=== PATIENT | male | born 1990 | race Two or more races ===

== ENCOUNTER 2017-02-02 00:06 | Emergency (ER) | payer SELFPAY ==
[~2017-02-02] VITALS: Ht 175.3 cm; Wt 84.7 kg
[2017-02-02] MEDS ORDERED: ONDANSETRON 2MG/ML, 2ML ONE ×2 (00:08→00:41)
[2017-02-02 00:13] VITALS: BP 122/74
[2017-02-02] MEDS ORDERED: SODIUM CHLORIDE 0.9% 1,000ML IVBOLUS ONE (00:30)
[2017-02-02] MEDS ORDERED: SODIUM CHLORIDE FLUSH 10ML SYR IVF ONE (00:30)
[2017-02-02] MEDS ORDERED: ONDANSETRON 2MG/ML, 2ML IVPush ONE (00:30)
== END 2017-02-02 05:31 | disposition home or self-care (01) ==
LOC: ED 05:07
DX: S09.93XA Unspecified injury of face, initial encounter (principal); S00.81XA Abrasion of other part of head, initial encounter; G31.2 Degeneration of nervous system due to alcohol; W22.8XXA Striking against or struck by other objects, initial encounter; Y93.89 Activity, other specified; Y92.89 Other specified places as the place of occurrence of the external cause; Y99.8 Other external cause status
CPT/HCPCS: 70450; 96361; 96374; 99285; J2405; J7030